=== PATIENT | female | born 1950 | race Caucasian/White ===

== ENCOUNTER 2017-11-28 15:42 | Inpatient (IN) | payer MEDICARE, OTHER ==
[~2017-11-28] VITALS: Ht 160 cm; Wt 54.0 kg
[2017-11-28 16:18] LABS: BASOPHILS # (AUTO) 0.02 x10^3/uL (0-0.1); BASOPHILS % (AUTO) 0 % (0-1); EOSINOPHILS # (AUTO) 0.02 x10^3/uL (0-0.4); EOSINOPHILS % (AUTO) 0 % (1-7); LYMPHOCYTES # (AUTO) 1.37 x10^3/uL (1-3.4); LYMPHOCYTES % (AUTO) 15 % (22-44); MD NO; MEAN CORPUSCULAR HEMOGLOBIN 29.4 pg (27.0-34.8); MEAN CORPUSCULAR HGB CONC 32.9 g/dL (32.4-35.8); MEAN CORPUSCULAR VOLUME 89.3 fL (80-100); MEAN PLATELET VOLUME 8.3 fL (7.4-10.4); MONOCYTES # (AUTO) 0.95 x10^3/uL (0.2-0.8); MONOCYTES % (AUTO) 11 % (2-9); NEUTROPHILS # (AUTO) 6.58 x10^3/uL (1.8-6.8); NEUTROPHILS % (AUTO) 74 % (42-75); PLATELET COUNT 346 x10^3/uL (130-400); RED BLOOD COUNT 4.68 x10^6/uL (3.82-5.3); RED CELL DISTRIBUTION WIDTH 14.9 % (9.6-15.2)
[2017-11-28 16:29] LABS: ALBUMIN 3.8 g/dL (3.4-5.0); ANION GAP 13 mmol/L (5-15); CALCIUM 8.7 mg/dL (8.5-10.1); CHLORIDE 92 mmol/L (98-107)
[2017-11-28 16:33] LABS: ALANINE AMINOTRANSFERASE 22 U/L (12-78); ALKALINE PHOSPHATASE 71 U/L (45-117); BILIRUBIN,TOTAL 0.9 mg/dL (0.2-1.0); CREATININE 0.99 mg/dL (0.55-1.02); TOTAL PROTEIN 7.7 g/dL (6.4-8.2)
[2017-11-28] MEDS ORDERED: SODIUM CHLORIDE FLUSH 10ML SYR IVF ONE ×2 (17:00→18:30)
[2017-11-28 17:07] LABS: MICROSCOPIC INDICATED
[2017-11-28 17:08] LABS: CULTURE INDICATED? YES
[2017-11-28] MEDS ORDERED: OMNIPAQUE 350 MG/ML, 100ML BOTTLE ONE (17:48)
[2017-11-28] MEDS ORDERED: SODIUM CHLORIDE 0.9% 1,000 ML IV ONE ×3 (18:09→19:08)
[2017-11-28] MEDS ORDERED: HYDROmorphone 1 MG/ML, 1ML ONE (18:23)
[2017-11-28] MEDS ORDERED: ONDANSETRON 2MG/ML, 2ML ONE (18:23)
[2017-11-28] MEDS ORDERED: SODIUM CHLORIDE 0.9% 1,000ML IVBOLUS ONE (18:30)
[2017-11-28] MEDS ORDERED: ONDANSETRON 2MG/ML, 2ML IVPush ONE (18:30)
[2017-11-28] MEDS ORDERED: HYDROmorphone 1 MG/ML, 1ML IVPush ONE (18:30)
[2017-11-28 19:05] LABS: INTERNATIONAL NORMALIZED RATIO 1.02 (0.93-1.1); PROTHROMBIN TIME 10.6 Seconds (9.6-11.5)
[2017-11-28] MEDS ORDERED: HYDROmorphone 2 MG/ML, 1ML ONE (19:20)
[2017-11-28] MEDS ORDERED: KETAMINE 10 MG/ML, 20ML ONE (19:22)
[2017-11-28] MEDS ORDERED: FENTANYL PF 250 MCG/5ML ONE (19:22)
[2017-11-28] MEDS ORDERED: PROPOFOL 10 MG/ML, 20ML ONE (19:22)
[2017-11-28] MEDS ORDERED: MIDAZOLAM 1 MG/ML, 2ML ONE (19:22)
[2017-11-28] MEDS ORDERED: SODIUM CHLORIDE FLUSH 10ML SYR IVF PRN (19:30)
[2017-11-28] MEDS ORDERED: EPINEPHRINE 1 MG/ML, 1ML ONE (20:26)
[2017-11-28] MEDS ORDERED: BUPIVACAINE/PF 0.5% ONE (20:26)
[2017-11-28] MEDS ORDERED: CEFOTETAN 2 GM ONE (20:34)
[2017-11-28] MEDS ORDERED: PHENYLEPHRINE 10 MG/ML ONE (20:34)
[2017-11-28] MEDS ORDERED: LIDOCAINE 2% 100MG/5ML SYRINGE ONE (20:34)
[2017-11-28] MEDS ORDERED: ROCURONIUM 10MG/ML,5ML ONE (20:34)
[2017-11-28] MEDS ORDERED: DEXAMETHASONE 4 MG/ML, 1ML ONE (20:34)
[2017-11-28] MEDS ORDERED: SUCCINYLCHOLINE 20 MG/ML, 10ML ONE (20:34)
[2017-11-28] MEDS ORDERED: BUPIVACAINE/PF-EPI 0.5% 1:200K IM ONE (21:17)
[2017-11-28] MEDS ORDERED: FENTANYL PF 100 MCG/2ML IV PRN (22:30)
[2017-11-28] MEDS ORDERED: PROMETHAZINE 25 MG/ML, 1ML IV PRN (22:30)
[2017-11-28] MEDS ORDERED: ACETAMINOPHEN 325 MG TABLET PO PRN (22:30)
[2017-11-28] MEDS ORDERED: HYDROmorphone 1 MG/ML, 1ML IV PRN (22:30)
[2017-11-28] MEDS ORDERED: OXYcodone 5 MG/5 ML ORAL.SOL UDC PO PRN (22:30)
[2017-11-28] MEDS ORDERED: FENTANYL PF 100 MCG/2ML ONE (22:32)
[2017-11-28] MEDS ORDERED: PIPERACILLIN/TAZO/PMX 3.375GM 50 ML IV ONE (23:00)
[2017-11-28] MEDS ORDERED: ONDANSETRON 2MG/ML, 2ML IVPush PRN (23:30)
[2017-11-28 23:50] VITALS: BP 125/63
[2017-11-29] MEDS: D5%-0.45NACL+KCL 20MEQ 1,000 ML IV SCH ×4 (00:57→22:54)
[2017-11-29] MEDS: FAMOTIDINE 20 MG/2 ML IVPush SCH ×3 (00:59→23:00)
[2017-11-29] MEDS: MORPHINE SULFATE 4 MG/ML, 1ML IVPush PRN ×8 (00:59→23:01)
[2017-11-29 02:00] VITALS: BP 129/66
[2017-11-29 04:05] VITALS: BP 117/58
[2017-11-29] MEDS: PIPERACILLIN/TAZO/PMX 3.375GM 50 ML IV SCH ×4 (04:44→22:54)
[2017-11-29 05:36] LABS: BASOPHILS % (AUTO) 0 % (0-1); EOSINOPHILS % (AUTO) 0 % (1-7); LYMPHOCYTES # (AUTO) 0.57 x10^3/uL (1-3.4); LYMPHOCYTES % (AUTO) 8 % (22-44); MD NO; MEAN CORPUSCULAR HEMOGLOBIN 30.2 pg (27.0-34.8); MEAN CORPUSCULAR HGB CONC 33.5 g/dL (32.4-35.8); MEAN PLATELET VOLUME 8.6 fL (7.4-10.4); MONOCYTES % (AUTO) 11 % (2-9); NEUTROPHILS # (AUTO) 6.02 x10^3/uL (1.8-6.8); NEUTROPHILS % (AUTO) 82 % (42-75); PLATELET COUNT 295 x10^3/uL (130-400); RED BLOOD COUNT 4.23 x10^6/uL (3.82-5.3); RED CELL DISTRIBUTION WIDTH 14.9 % (9.6-15.2)
[2017-11-29 05:38] LABS: CHLORIDE 100 mmol/L (98-107)
[2017-11-29 05:48] LABS: ALANINE AMINOTRANSFERASE 25 U/L (12-78); ALKALINE PHOSPHATASE 57 U/L (45-117); ANION GAP 10 mmol/L (5-15); CALCIUM 8.1 mg/dL (8.5-10.1); CREATININE 0.89 mg/dL (0.55-1.02); TOTAL PROTEIN 6.3 g/dL (6.4-8.2)
[2017-11-29 07:22] VITALS: BP 112/69
[2017-11-29 13:17] VITALS: BP 119/71
[2017-11-29 19:41] VITALS: BP 122/72
[2017-11-30 01:22] VITALS: BP 147/78
[2017-11-30] MEDS: MORPHINE SULFATE 4 MG/ML, 1ML IVPush PRN ×4 (02:02→20:13)
[2017-11-30 05:03] LABS: BASOPHILS # (AUTO) 0.03 x10^3/uL (0-0.1); BASOPHILS % (AUTO) 1 % (0-1); EOSINOPHILS # (AUTO) 0.05 x10^3/uL (0-0.4); EOSINOPHILS % (AUTO) 1 % (1-7); LYMPHOCYTES # (AUTO) 0.93 x10^3/uL (1-3.4); LYMPHOCYTES % (AUTO) 22 % (22-44); MD NO; MEAN CORPUSCULAR HEMOGLOBIN 29.8 pg (27.0-34.8); MEAN CORPUSCULAR HGB CONC 33.3 g/dL (32.4-35.8); MEAN CORPUSCULAR VOLUME 89.4 fL (80-100); MEAN PLATELET VOLUME 8.2 fL (7.4-10.4); MONOCYTES # (AUTO) 0.75 x10^3/uL (0.2-0.8); MONOCYTES % (AUTO) 18 % (2-9); NEUTROPHILS # (AUTO) 2.44 x10^3/uL (1.8-6.8); NEUTROPHILS % (AUTO) 58 % (42-75); PLATELET COUNT 265 x10^3/uL (130-400); RED BLOOD COUNT 3.97 x10^6/uL (3.82-5.3); RED CELL DISTRIBUTION WIDTH 15.3 % (9.6-15.2)
[2017-11-30 05:13] LABS: ANION GAP 7 mmol/L (5-15); CALCIUM 8.1 mg/dL (8.5-10.1); CHLORIDE 103 mmol/L (98-107); CREATININE 0.76 mg/dL (0.55-1.02)
[2017-11-30] MEDS: PIPERACILLIN/TAZO/PMX 3.375GM 50 ML IV SCH ×4 (05:28→23:29)
[2017-11-30 07:09] VITALS: BP 133/74
[2017-11-30] MEDS: D5%-0.45NACL+KCL 20MEQ 1,000 ML IV SCH ×2 (08:10→20:13)
[2017-11-30] MEDS: FAMOTIDINE 20 MG/2 ML IVPush SCH ×2 (11:32→23:29)
[2017-11-30 14:17] VITALS: BP 135/72
[2017-11-30 19:43] VITALS: BP 119/66
[2017-12-01 02:06] VITALS: BP 126/76
[2017-12-01] MEDS: MORPHINE SULFATE 4 MG/ML, 1ML IVPush PRN (03:13)
[2017-12-01] MEDS: PIPERACILLIN/TAZO/PMX 3.375GM 50 ML IV SCH ×2 (05:06→10:52)
[2017-12-01 06:54] VITALS: BP 117/70
[2017-12-01] MEDS: D5%-0.45NACL+KCL 20MEQ 1,000 ML IV SCH (08:50)
[2017-12-01] MEDS ORDERED: ACETAMINOPHEN 325 MG TABLET PO PRN (09:30)
[2017-12-01] MEDS ORDERED: BISACODYL 10 MG SUPP PR ONE (09:30)
[2017-12-01] MEDS ORDERED: OXYcodone/APAP 5/325MG TABLET PO PRN (09:30)
[2017-12-01] MEDS: FAMOTIDINE 20 MG/2 ML IVPush SCH ×2 (10:51→22:46)
[2017-12-01 13:17] VITALS: BP 136/76
[2017-12-01] MEDS: ACETAMINOPHEN 325 MG TABLET PO PRN ×2 (16:34→22:46)
[2017-12-01] MEDS ORDERED: BISACODYL 10 MG SUPP PR PRN (18:30)
[2017-12-01 20:11] VITALS: BP 129/72
[2017-12-01] MEDS: SODIUM CHLORIDE FLUSH 10ML SYR IVF SCH (21:00)
[2017-12-01] MEDS: METOCLOPRAMIDE 5 MG/ML, 2ML IVPush SCH (21:28)
[2017-12-02 02:29] VITALS: BP 135/82
[2017-12-02 06:52] VITALS: BP 147/74
[2017-12-02] MEDS: ACETAMINOPHEN 325 MG TABLET PO PRN (07:42)
[2017-12-02] MEDS: SODIUM CHLORIDE FLUSH 10ML SYR IVF SCH (07:42)
[2017-12-02] MEDS: METOCLOPRAMIDE 5 MG/ML, 2ML IVPush SCH (09:59)
[2017-12-02] MEDS: FAMOTIDINE 20 MG/2 ML IVPush SCH (11:30)
[2017-12-02 11:43] VITALS: BP 137/74
== END 2017-12-02 12:00 | disposition home or self-care (01) | DRG 329 ==
LOC: ED 19:18 → EDIP 19:50 → 4NOR 23:15 → DCLOUNGE 12-02 11:57
PROVIDERS: ADMIT Surgery; ATTEND Surgery
PROC: 0DB80ZZ Excision of Small Intestine, Open Approach (ICD-10-PCS; 2017-11-28)
PROC: 0YQ70ZZ Repair Right Femoral Region, Open Approach (ICD-10-PCS; 2017-11-28)
PROC: 0DNW4ZZ Release Peritoneum, Percutaneous Endoscopic Approach (ICD-10-PCS; principal; 2017-11-28 21:15)
DX: K41.30 Unilateral femoral hernia, with obstruction, without gangrene, not specified as recurrent (principal); K55.029 Acute infarction of small intestine, extent unspecified; K66.8 Other specified disorders of peritoneum; E87.1 Hypo-osmolality and hyponatremia; N30.91 Cystitis, unspecified with hematuria; K66.0 Peritoneal adhesions (postprocedural) (postinfection); Z87.891 Personal history of nicotine dependence
CPT/HCPCS: 36415; 74018; 74021; 74177; 80048; 80053; 81001; 83605; 83690; 85025; 85610; 85730; 87086; 88305; 93005; 96361; 96374; 96375; J0171; J1100; J1170; J2250; J2405; J2543; J2704; J3010; J3490; Q9967; J0330; J2370; J2765; J3480; J7030; S0028; S0074